=== PATIENT | male | born 1945 | race Caucasian/White ===

== ENCOUNTER → 2016-07-30 | Outpatient (CLI) | payer OTHER ==
[~2016-07-30] VITALS: Ht 175.3 cm; Wt 96.0 kg
[~2016-07-30] MED LIST: AMOX-291 PO; ASCO100T5 PO; HYDR12.58 PO; LACTATED RINGERS 1,000 ML IV SCH; MULT-658 PO; PANT40TA5 PO
[2016-07-30 06:07] VITALS: BP 127/78
== END | disposition home or self-care (01) ==
LOC: OUT 05:51 → EDSTATUS 07:30 → OUT 07:37
PROVIDERS: ATTEND Internal Medicine Gastroenterology
DX: Z01.810 Encounter for preprocedural cardiovascular examination (principal); D49.0 Neoplasm of unspecified behavior of digestive system; Z08 Encounter for follow-up examination after completed treatment for malignant neoplasm; Z85.09 Personal history of malignant neoplasm of other digestive organs; Z90.49 Acquired absence of other specified parts of digestive tract
CPT/HCPCS: 93005

== ENCOUNTER 2018-01-20 06:19 | Day surgery (SDC) | payer OTHER ==
[~2018-01-20] VITALS: Ht 177.8 cm; Wt 95.7 kg
[~2018-01-20 06:19] MED LIST changes: +ASPI325T80 PO; -LACTATED RINGERS 1,000 ML IV SCH
[2018-01-20] MEDS ORDERED: LACTATED RINGERS 1,000 ML IV SCH (07:05)
[2018-01-20 07:13] VITALS: BP 157/97
[2018-01-20] MEDS ORDERED: ASPI-496 PO (07:13)
[2018-01-20] MEDS ORDERED: MIDAZOLAM 1 MG/ML, 2ML ONE (08:23)
[2018-01-20] MEDS ORDERED: FENTANYL PF 250 MCG/5ML ONE (08:24)
[2018-01-20] MEDS ORDERED: PROPOFOL 10 MG/ML, 20ML ONE (08:25)
[2018-01-20] MEDS ORDERED: LIDOCAINE-MPF 2% ,5ML ONE (08:25)
[2018-01-20] MEDS ORDERED: SUCCINYLCHOLINE 20 MG/ML, 10ML ONE (08:26)
[2018-01-20] MEDS ORDERED: PHENYLEPHRINE 10 MG/ML ONE (08:30)
[2018-01-20] MEDS ORDERED: ONDANSETRON 2MG/ML, 2ML ONE (08:58)
[2018-01-20] MEDS ORDERED: OMNIPAQUE 350 MG/ML, 50 ML BOTTLE ONE (09:18)
[2018-01-20] MEDS ORDERED: ONDANSETRON 2MG/ML, 2ML IV PRN (09:30)
[2018-01-20] MEDS ORDERED: FENTANYL PF 100 MCG/2ML IV PRN (09:30)
[2018-01-20] MEDS ORDERED: ALBUTEROL SULFATE 2.5 MG/3 ML NPPB PRN (09:30)
[2018-01-20] MEDS ORDERED: LABETALOL 5MG/ML, 20ML IV PRN (09:30)
[2018-01-20] MEDS ORDERED: HYDROmorphone 1 MG/ML, 1ML IV PRN (09:30)
[2018-01-20] MEDS ORDERED: OXYcodone 5 MG/5 ML ORAL.SOL UDC PO PRN (09:30)
[2018-01-20] MEDS ORDERED: MEPERIDINE/PF 25MG/0.5ML IVPush PRN (09:30)
[2018-01-20] MEDS ORDERED: hydrALAzine 20 MG/ML, 1ML IV PRN (09:30)
[2018-01-20] MEDS ORDERED: ACETAMINOPHEN 325 MG TABLET PO PRN (09:30)
[2018-01-20] MEDS ORDERED: HALOPERIDOL 5 MG/ML IV PRN (09:30)
== END 2018-01-20 10:30 | disposition home or self-care (01) ==
LOC: OUT 06:19
PROVIDERS: ATTEND Internal Medicine Gastroenterology
DX: K83.8 Other specified diseases of biliary tract (principal); K21.9 Gastro-esophageal reflux disease without esophagitis; I10 Essential (primary) hypertension; G47.33 Obstructive sleep apnea (adult) (pediatric); Z85.09 Personal history of malignant neoplasm of other digestive organs; Z87.891 Personal history of nicotine dependence; Z98.890 Other specified postprocedural states; Z85.038 Personal history of other malignant neoplasm of large intestine; Z79.82 Long term (current) use of aspirin
CPT/HCPCS: 43261; 74328; 88305; 93005; C1769; J0330; J2250; J2370; J2405; J2704; J3010; J3490; J7120; Q9967